=== PATIENT | female | born 1980 | race Caucasian/White ===

== ENCOUNTER 2017-08-07 21:00 | Emergency (ER) | payer MEDICAID ==
[~2017-08-07] VITALS: Ht 160 cm; Wt 50.0 kg
[2017-08-07 21:03] VITALS: BP 99/46
[2017-08-07] MEDS: acetaminophen 325mg tablet PO ONE (21:45)
[2017-08-07] MEDS: normal saline 1000ml 1,000 ML IV ONE (21:50)
== END 2017-08-07 22:53 | disposition home or self-care (01) ==
LOC: ER 21:00
DX: R51 Headache (principal); F15.10 Other stimulant abuse, uncomplicated; Z90.49 Acquired absence of other specified parts of digestive tract; Z98.890 Other specified postprocedural states
CPT/HCPCS: 96360; 99284; J7030; 96361; 99285

== ENCOUNTER 2018-03-14 08:43 | Emergency (ER) | payer MEDICAID ==
[~2018-03-14] VITALS: Ht 160 cm; Wt 55.9 kg
[2018-03-14 08:46] VITALS: BP 118/72
== END 2018-03-14 09:45 | disposition home or self-care (01) ==
LOC: ER 08:44
DX: M79.672 Pain in left foot (principal); F15.90 Other stimulant use, unspecified, uncomplicated; Z90.49 Acquired absence of other specified parts of digestive tract; W20.8XXA Other cause of strike by thrown, projected or falling object, initial encounter; Y93.89 Activity, other specified; Y92.89 Other specified places as the place of occurrence of the external cause; Y99.8 Other external cause status
CPT/HCPCS: 73630; 99284

== ENCOUNTER 2018-06-27 07:41 | Emergency (ER) | payer MEDICAID ==
[~2018-06-27] VITALS: Ht 160 cm; Wt 52.3 kg
--- NOTE | 2018-06-27 07:53 | NUR ---
DENY OFFICER AT [facility] AWARE OF PT AND ARE ON THE WAY TO TAKE REPORT, NO CASE NUMBER AT THIS TIME.
[2018-06-27] MEDS ORDERED: ondansetron 4mg rapidly disintigrating tab PO ONE (08:15)
[2018-06-27] MEDS ORDERED: HYDROcodone/acetaminophen 5mg/325mg tablet PO ONE (08:15)
[2018-06-27] MEDS ORDERED: TETanus/Pertussis (Acell)/Diphther VAC/PF (Tdap-Adult) 0.5ml syringe IMVAC ONE (09:25)
[2018-06-27 09:48] VITALS: BP 127/94
== END 2018-06-27 09:49 ==
LOC: ER 07:41
DX: S02.32XA Fracture of orbital floor, left side, initial encounter for closed fracture (principal); S02.40DA Maxillary fracture, left side, initial encounter for closed fracture; S02.2XXA Fracture of nasal bones, initial encounter for closed fracture; S05.12XA Contusion of eyeball and orbital tissues, left eye, initial encounter; S09.90XA Unspecified injury of head, initial encounter; F15.90 Other stimulant use, unspecified, uncomplicated; Z90.49 Acquired absence of other specified parts of digestive tract; Y08.89XA Assault by other specified means, initial encounter; Y93.89 Activity, other specified; Y92.89 Other specified places as the place of occurrence of the external cause; Y99.8 Other external cause status
CPT/HCPCS: 70450; 70486; 90471; 90715; 99284; 99285

== ENCOUNTER 2018-12-04 10:15 | Emergency (ER) | payer MEDICAID ==
[~2018-12-04] VITALS: Ht 160 cm; Wt 43.0 kg
[2018-12-04 10:25] VITALS: BP 98/63
[2018-12-04] MEDS ORDERED: SULF1TAB49 PO (10:49)
[2018-12-04] MEDS ORDERED: LEVO500T2 PO (10:49)
== END 2018-12-04 11:02 | disposition home or self-care (01) ==
LOC: ER 10:15
DX: S91.331A Puncture wound without foreign body, right foot, initial encounter (principal); L08.9 Local infection of the skin and subcutaneous tissue, unspecified; F15.90 Other stimulant use, unspecified, uncomplicated; Z90.89 Acquired absence of other organs; Z98.890 Other specified postprocedural states; W25.XXXA Contact with sharp glass, initial encounter; Y93.89 Activity, other specified; Y92.89 Other specified places as the place of occurrence of the external cause; Y99.9 Unspecified external cause status
CPT/HCPCS: 99283

== ENCOUNTER 2019-05-16 14:11 | Emergency (ER) | payer MEDICAID | END 2019-05-16 15:48 | disposition left against medical advice (07) | LOC: ER 14:11 | DX: R11.2 Nausea with vomiting, unspecified (principal); R51 Headache; Z53.21 Procedure and treatment not carried out due to patient leaving prior to being seen by health care provider ==

== ENCOUNTER 2019-06-04 23:50 | Emergency (ER) | payer MEDICAID ==
[~2019-06-04] VITALS: Ht 160 cm; Wt 53.0 kg
[2019-06-04 23:53] VITALS: BP 130/85
== END 2019-06-05 00:23 | disposition home or self-care (01) ==
LOC: ER 23:50
DX: F15.10 Other stimulant abuse, uncomplicated (principal); Z90.49 Acquired absence of other specified parts of digestive tract; Z98.890 Other specified postprocedural states
CPT/HCPCS: 99281

== ENCOUNTER 2020-03-19 07:54 | Emergency (ER) | payer MEDICAID ==
[~2020-03-19] VITALS: Ht 160 cm; Wt 52.4 kg
[2020-03-19 07:56] VITALS: BP 122/78
[2020-03-19] MEDS ORDERED: CEPH500C5 PO (08:56)
== END 2020-03-19 09:32 | disposition home or self-care (01) ==
LOC: ER 07:55
DX: M79.641 Pain in right hand (principal); R20.0 Anesthesia of skin; M25.431 Effusion, right wrist; F15.90 Other stimulant use, unspecified, uncomplicated; Z90.49 Acquired absence of other specified parts of digestive tract; Z98.890 Other specified postprocedural states; Z79.2 Long term (current) use of antibiotics
CPT/HCPCS: 73130; 99283

== ENCOUNTER 2020-04-17 12:49 | Emergency (ER) | payer MEDICAID ==
[~2020-04-17] VITALS: Ht 160 cm; Wt 52.3 kg
[~2020-04-17 12:49] MED LIST: CEPH500C5 PO
[2020-04-17] MEDS ORDERED: ibuprofen tablet 400 MG TABLET PO ONE (14:15)
[2020-04-17 15:28] VITALS: BP 104/71
== END 2020-04-17 15:31 | disposition home or self-care (01) ==
LOC: ER 12:50
DX: F11.10 Opioid abuse, uncomplicated (principal); R51.9 Headache, unspecified; F15.90 Other stimulant use, unspecified, uncomplicated; Z90.49 Acquired absence of other specified parts of digestive tract; Z98.890 Other specified postprocedural states; Z79.2 Long term (current) use of antibiotics
CPT/HCPCS: 99285

== ENCOUNTER 2020-06-04 20:50 | Emergency (ER) | payer MEDICAID ==
[~2020-06-04] VITALS: Ht 160 cm; Wt 54.5 kg
[2020-06-04 20:55] VITALS: BP 101/72
--- NOTE | 2020-06-04 21:45 | NUR ---
i/d lac tray set up at bedside complete
[2020-06-04] MEDS ORDERED: TETanus/Pertussis (Acell)/Diphther VAC/PF (Tdap-Adult) 0.5ml syringe IMVAC ONE (21:50)
[2020-06-04] MEDS ORDERED: SULF1TAB49 PO (22:15)
== END 2020-06-04 22:45 | disposition home or self-care (01) ==
LOC: ER 20:51
DX: L02.31 Cutaneous abscess of buttock (principal); L03.317 Cellulitis of buttock; F15.90 Other stimulant use, unspecified, uncomplicated; F11.90 Opioid use, unspecified, uncomplicated; F17.200 Nicotine dependence, unspecified, uncomplicated; Z20.3 Contact with and (suspected) exposure to rabies; Z90.49 Acquired absence of other specified parts of digestive tract; Z98.890 Other specified postprocedural states; Z79.2 Long term (current) use of antibiotics
CPT/HCPCS: 10060; 90471; 90715; 99283

== ENCOUNTER 2020-11-01 22:04 | Emergency (ER) | payer MEDICAID ==
[~2020-11-01] VITALS: Ht 160 cm; Wt 53.0 kg
[~2020-11-01 22:04] MED LIST changes: +CEPH-585 PO; -CEPH500C5 PO
[2020-11-01 22:05] VITALS: BP 120/84
--- NOTE | 2020-11-01 22:37 | NUR ---
RING REMOVED AFTER BEING CUT, PT REQUESTED RING BE THROWN IN GARBAGE.
== END 2020-11-01 23:31 | disposition home or self-care (01) ==
LOC: ER 22:04
DX: S60.222A Contusion of left hand, initial encounter (principal); F15.90 Other stimulant use, unspecified, uncomplicated; F11.90 Opioid use, unspecified, uncomplicated; Z90.49 Acquired absence of other specified parts of digestive tract; Z98.890 Other specified postprocedural states; Z79.899 Other long term (current) drug therapy; X58.XXXA Exposure to other specified factors, initial encounter; Y93.89 Activity, other specified; Y92.89 Other specified places as the place of occurrence of the external cause; Y99.8 Other external cause status
CPT/HCPCS: 99284

== ENCOUNTER 2021-03-18 10:22 | Emergency (ER) | payer MEDICAID | END 2021-03-18 19:04 | disposition left against medical advice (07) | LOC: ER 10:23 | DX: M25.569 Pain in unspecified knee (principal); Z53.21 Procedure and treatment not carried out due to patient leaving prior to being seen by health care provider ==

== ENCOUNTER 2021-04-18 19:27 | Emergency (ER) | payer MEDICAID ==
[~2021-04-18] VITALS: Ht 160 cm; Wt 52.7 kg
[2021-04-18 19:42] VITALS: BP 113/76
[2021-04-18] MEDS ORDERED: AMOX-422 PO (21:44)
== END 2021-04-18 22:12 | disposition home or self-care (01) ==
LOC: ER 19:28
DX: J32.9 Chronic sinusitis, unspecified (principal); H66.92 Otitis media, unspecified, left ear; H92.03 Otalgia, bilateral; R09.89 Other specified symptoms and signs involving the circulatory and respiratory systems; F17.200 Nicotine dependence, unspecified, uncomplicated; F15.90 Other stimulant use, unspecified, uncomplicated; F11.90 Opioid use, unspecified, uncomplicated; Z90.49 Acquired absence of other specified parts of digestive tract; Z98.890 Other specified postprocedural states; Z79.2 Long term (current) use of antibiotics
CPT/HCPCS: 99283

== ENCOUNTER 2021-09-25 16:55 | Emergency (ER) | payer MEDICAID ==
[~2021-09-25] VITALS: Ht 160 cm; Wt 54.5 kg
[2021-09-25 17:34] VITALS: BP 112/71
--- NOTE | 2021-09-25 18:24 | NUR ---
not in lobby
== END 2021-09-25 19:28 | disposition home or self-care (01) ==
LOC: ER 16:56
DX: M71.21 Synovial cyst of popliteal space [Baker], right knee (principal); F19.10 Other psychoactive substance abuse, uncomplicated; F14.10 Cocaine abuse, uncomplicated; F11.10 Opioid abuse, uncomplicated
CPT/HCPCS: 73564; 99283

== ENCOUNTER 2021-11-11 13:39 | Emergency (ER) | payer MEDICAID ==
[~2021-11-11] VITALS: Ht 160 cm; Wt 54.5 kg
[2021-11-11 13:46] VITALS: BP 110/64
[2021-11-11] MEDS ORDERED: dexamethasone sod phosphate 10mg/ml inj IM STA (14:59)
[2021-11-11] MEDS ORDERED: amox tr/potassium clavulanate 875/125mg TAB PO ONE (15:00)
[2021-11-11] MEDS ORDERED: IBUP-1984 PO (15:03)
[2021-11-11] MEDS ORDERED: AMOX-117 PO (15:03)
== END 2021-11-11 15:37 | disposition home or self-care (01) ==
LOC: ER 13:39
DX: M25.531 Pain in right wrist (principal); F15.90 Other stimulant use, unspecified, uncomplicated; F11.90 Opioid use, unspecified, uncomplicated; Z90.49 Acquired absence of other specified parts of digestive tract; Z98.890 Other specified postprocedural states; Z79.2 Long term (current) use of antibiotics; Z79.899 Other long term (current) drug therapy
CPT/HCPCS: 29125; 73090; 73110; 73130; 96372; 99284; J1100; L3908

== ENCOUNTER 2023-02-24 18:20 | Emergency (ER) | payer MEDICAID ==
[~2023-02-24] VITALS: Ht 160 cm; Wt 60.0 kg
[2023-02-24 18:25] VITALS: BP 111/78; PULSE 85; RESP 18; TEMP 97; O2SAT 97
[2023-02-24] MEDS ORDERED: CEPH250T PO (18:44)
== END 2023-02-24 18:55 | disposition home or self-care (01) ==
LOC: ER 18:21
DX: L03.115 Cellulitis of right lower limb (principal); F17.200 Nicotine dependence, unspecified, uncomplicated; F15.10 Other stimulant abuse, uncomplicated
CPT/HCPCS: 99283

== ENCOUNTER 2023-09-25 09:07 | Emergency (ER) | payer MEDICAID ==
[~2023-09-25] VITALS: Ht 160 cm; Wt 55.4 kg
[2023-09-25 09:10] VITALS: BP 114/72; PULSE 66; RESP 16; TEMP 97.5; O2SAT 97
[2023-09-25] MEDS ORDERED: PSEU120T56 PO (09:32)
[2023-09-25] MEDS ORDERED: AMOX-117 PO (09:32)
[2023-09-25] MEDS ORDERED: FLUT16SP2 BOTHNARES (09:33)
== END 2023-09-25 09:39 | disposition home or self-care (01) ==
LOC: ER 09:07
DX: H66.93 Otitis media, unspecified, bilateral (principal); J32.9 Chronic sinusitis, unspecified; F15.90 Other stimulant use, unspecified, uncomplicated; F11.90 Opioid use, unspecified, uncomplicated; Z90.49 Acquired absence of other specified parts of digestive tract; Z98.891 History of uterine scar from previous surgery
CPT/HCPCS: 99283

== ENCOUNTER 2023-09-29 10:17 | Emergency (ER) | payer MEDICAID ==
[~2023-09-29] VITALS: Ht 160 cm; Wt 55.0 kg
[~2023-09-29 10:17] MED LIST changes: +AMOX-117 PO; -CEPH-585 PO; +FLUT16SP2 BOTHNARES; +PSEU120T56 PO
[2023-09-29 10:31] VITALS: BP 102/68; PULSE 68; RESP 18; TEMP 97.8; O2SAT 98
== END 2023-09-29 12:09 | disposition left against medical advice (07) ==
LOC: ER 10:17
DX: H66.92 Otitis media, unspecified, left ear (principal); Z53.21 Procedure and treatment not carried out due to patient leaving prior to being seen by health care provider

== ENCOUNTER 2025-05-15 01:32 | Emergency (ER) | payer MEDICAID ==
[~2025-05-15 01:32] MED LIST changes: -AMOX-117 PO
== END 2025-05-15 02:26 | disposition left against medical advice (07) ==
LOC: ER 01:33
DX: R11.10 Vomiting, unspecified (principal); Z53.21 Procedure and treatment not carried out due to patient leaving prior to being seen by health care provider